=== PATIENT | male | born 1965 | race Caucasian/White ===

== ENCOUNTER 2016-11-19 22:21 | Emergency (ER) | payer BC ==
[~2016-11-19] VITALS: Ht 175.3 cm; Wt 90.5 kg
[2016-11-19 22:26] VITALS: TEMP 36.7; Ht 175.3 cm; Wt 90.5 kg
--- NOTE | 2016-11-20 00:17 | EMERGENCY ROOM VISIT NOTE ---
History Report prepared by [place]: Delfino Pike Under the Supervision of: Dr. Clarke Barajas D.O. First contact with patient: 00:08 Chief Complaint: URINARY SYMPTOMS Stated Complaint: URINARY PAIN AND BLEEDING Nursing Triage Summary: pt c/o blood in urine started tonight, urinary sx's for past week and half History of Present Illness The patient is a 51 year old male who presents to the Emergency Room with complaints of recurrent hematuria that first started at 1900 tonight. The patient notes bright blood in his urine with clots. He has also been experiencing burning with urination and urinary frequency for more than a week and a half. He has been taking Azo. He denies back pain. The patient has not had a UTI or kidney stone in more than 20 years. The patient is not on any blood thinners. The patient has had prostatitis, which did not feel like his current symptoms. He denies family history of bladder cancer. Source of History: patient Onset: 1900 tonight Position: other (urine) Quality: other (hematuria) Timing: other (recurrent) Associated Symptoms: + urinary symptoms (burning, frequnecy), No back pain Review of Systems See HPI for pertinent positives and negatives. A total of ten systems were reviewed and were otherwise negative. Past Medical & Surgical Medical Problems: (1) H/O renal calculi (2) H/O urinary tract infection Family History No pertinent family history Social History Smoking Status: Never Smoker Marital Status: Housing Status: lives with family Current/Historical Medications Scheduled Multivitamin (Multivitamin), 1 TAB PO DAILY Allergies Uncoded Allergies: NKDA (Allergy, Unknown, 09/06/02) Physical Exam Vital Signs Date Time Temp Pulse Resp B/P Pulse Ox O2 Delivery O2 Flow Rate FiO2 11/20/16 00:45 69 20 141/80 95 Room Air 11/19/16 22:26 36.7 84 18 138/86 94 Room Air Physical Exam GENERAL: Awake, alert, well-appearing, in no distress HENT: Normocephalic, atraumatic. Oropharynx unremarkable. EYES: Normal conjunctiva. Sclera non-icteric. NECK: Supple. No nuchal rigidity. FROM. No JVD. RESPIRATORY: Clear to auscultation. CARDIAC: Regular rate, normal rhythm. Extremities warm and well perfused. Pulses equal. ABDOMEN: Soft, non-distended. No tenderness to palpation. No rebound or guarding. No masses. RECTAL: Deferred. MUSCULOSKELETAL: Chest examination reveals no tenderness. The back is symmetrical on inspection without obvious abnormality. There is no CVA tenderness to palpation. No joint edema. LOWER EXTREMITIES: Calves are equal size bilaterally and non-tender. No edema. No discoloration. NEURO: Normal sensorium. No sensory or motor deficits noted. SKIN: No rash or jaundice noted. Medical Decision & Procedures ER Provider Diagnostic Interpretation: CT results as stated below per my review and radiologist interpretation CT ABDOMEN & PELVIS: No obstructing radiopaque urolithiasis or secondary sequel. No bladder wall thickening. Normal appearing appendix. Moderate colonic fecal retention. Contracted gallbladder. Radiologist Fareed Marinelli MD. Laboratory Results Test 11/20/16 00:25 Urine Color DK YELLOW Urine Appearance CLOUDY (CLEAR) Urine pH 6.0 (4.5-7.5) Urine Specific [place] 1.009 (1.000-1.030) Urine Protein NEG (NEG) Urine Glucose (UA) NEG (NEG) Urine Ketones NEG (NEG) Urine Occult Blood 3+ (NEG) Urine Nitrite POS (NEG) Urine Bilirubin NEG (NEG) Urine Urobilinogen NEG (NEG) Urine Leukocyte Esterase LARGE (NEG) Urine WBC (Auto) >30 /hpf (0-5) Urine RBC (Auto) 10-30 /hpf (0-4) Urine Hyaline Casts (Auto) 1-5 /lpf (0-5) Urine Epithelial Cells (Auto) 0-5 /lpf (0-5) Urine Bacteria (Auto) 1+ (NEG) Urine Sperm (Auto) (NOT PRESENT) Laboratory results reviewed by nm ED Course 0008: The patient was evaluated in room C4. A complete history and physical exam was performed. 0130: Cipro 500 mg PO. 0135: Reassessed the patient. Discussed the findings with him. He verbalized understanding of the discharge instructions. The patient is ready for discharge. Medical Decision Differential diagnosis includes UTI, ureteral lithiasis, pyelonephritis, prostatitis, bladder cancer. Resting in no distress patient clearly has a urinary tract infection of unknown etiology. Patient started on Cipro. Patient was given strict instructions to follow up primary care physician return for any worsening of conditions. Patient's CAT scan was reviewed with him and his at bedside Impression Primary Impression: Urinary tract infection Scribe Attestation The scribe's documentation has been prepared under my direction and personally reviewed by me in its entirety. I confirm that the note above accurately reflects all work, treatment, procedures, and medical decision making performed by me. Departure Information Dispostion Home / Self-Care Prescriptions Ciprofloxacin Hcl (CIPRO) 500 Mg Tab 500 MG PO BID, #14 TAB Prov: Clarke Barajas, DO 11/20/16 Referrals Kumar Kumar M.D. (PCP) Forms HOME CARE DOCUMENTATION FORM, IMPORTANT VISIT INFORMATION Patient Instructions My [facility] Problem Qualifiers Primary Impression: Urinary tract infection Urinary tract infection type: site unspecified Hematuria presence: with hematuria Qualified Codes: N39.0 - Urinary tract infection, site not specified ; R31.9 - Hematuria, unspecified
[2016-11-20 00:57] LABS: URINE APPEARANCE CLOUDY (CLEAR); URINE BILIRUBIN NEG (NEG); URINE COLOR DK YELLOW; URINE EPITHELIAL CELL AUTO 0-5 /lpf (0-5); URINE NITRITE POS (NEG); URINE SPECIFIC GRAVITY 1.009 (1.000-1.030); UROBILINOGEN NEG (NEG)
[2016-11-20] MEDS ORDERED: MULT-506 PO (01:12)
[2016-11-20 01:18] LABS: MANUAL MICROSCOPIC REQUIRED? NO; REVIEW REQ? YES
[2016-11-20] MEDS ORDERED: CIPROFLOXACIN 500 MG TAB PO STA (01:30)
[2016-11-20] MEDS ORDERED: CIPR-255 PO (01:36)
[2016-11-20 01:42] VITALS: BP 112/72; PULSE 67; O2SAT 94
--- NOTE | 2016-11-20 07:57 | DIAGNOSTIC IMAGING REPORT ---
ABDOMEN AND PELVIS CT WITHOUT CONTRAST CT DOSE: 440.27 mGy.cm HISTORY: hematuria TECHNIQUE: Multiaxial CT images of the abdomen and pelvis were performed without contrast. COMPARISON STUDY: None. FINDINGS: The lung bases are clear. The unenhanced liver, spleen, gallbladder, pancreas, kidneys, and adrenal glands are within normal limits. No bowel wall thickening or obstruction. The pelvic organs are unremarkable. No suspicious lytic or blastic osseous lesions. No renal stones or hydronephrosis. Normal appendix. Moderate well-formed stool seen within the colon. IMPRESSION: No renal stones or hydronephrosis. Normal appendix. Moderate well-formed stool within the colon. No evidence for bowel obstruction. Electronically signed by: Elie Brito M.D. 11/20/2016 7:55 AM Dictated Date/Time: 11/20/2016 7:51 AM
== END 2016-11-20 01:43 | disposition home or self-care (01) ==
LOC: C.EDB 22:21 → C.EDC 11-20 01:43
DX: N39.0 Urinary tract infection, site not specified (principal); Z87.440 Personal history of urinary (tract) infections; Z87.442 Personal history of urinary calculi